=== PATIENT | female | born 1945 | race Two or more races ===

== ENCOUNTER 2017-08-21 18:13 | Emergency (ER) | payer OTHER ==
[~2017-08-21] VITALS: Ht 165.1 cm; Wt 84.4 kg
[~2017-08-21 18:13] MED LIST: ASA81 MG; CEPHULAC10 G/15 ML PO; FLEXERIL10 MG PO; HYDROCHLOROTH12.5 M1; LISINOPRIL2.5 MG; METOPROLOL SUCC25 MG; MOTRIN800 MG PO; NORVASC2.5 MG; ORPH100T PO; PRAVACHOL10 MG; ZANTAC150 MG PO
[2017-08-21] MEDS ORDERED: PEPCID AC20 MG (18:38)
[2017-08-21] MEDS ORDERED: LIPITOR40 MG (18:38)
[2017-08-21] MEDS ORDERED: TOPROL XL50 M1 (18:39)
[2017-08-21] MEDS ORDERED: PLAVIX75 MG (18:39)
[2017-08-21] MEDS ORDERED: ASPIR-LOW81 MG (18:40)
[2017-08-21] MEDS ORDERED: NIFE60TA3 (18:40)
[2017-08-22] MEDS ORDERED: ZANTAC300 MG PO (02:52)
== END 2017-08-22 03:47 | disposition home or self-care (01) ==
LOC: ER 18:13
DX: R07.89 Other chest pain (principal); K21.9 Gastro-esophageal reflux disease without esophagitis; I10 Essential (primary) hypertension

== ENCOUNTER 2017-08-25 09:58 | Emergency (ER) | payer OTHER ==
[~2017-08-25] VITALS: Ht 165.1 cm; Wt 83.5 kg
[~2017-08-25 09:58] MED LIST changes: +ASPIR-LOW81 MG; +LIPITOR40 MG; +NIFE60TA3; +PEPCID AC20 MG; +PLAVIX75 MG; +TOPROL XL50 M1; +ZANTAC300 MG PO
== END 2017-08-25 13:23 | disposition home or self-care (01) ==
LOC: ER 09:58
DX: K29.60 Other gastritis without bleeding (principal)

== ENCOUNTER 2017-09-09 07:33 | Outpatient (CLI) | payer OTHER | END 2017-09-09 07:36 | disposition home or self-care (01) | LOC: NUCLEAR 07:33 | DX: R07.89 Other chest pain (principal); I10 Essential (primary) hypertension; R94.31 Abnormal electrocardiogram [ECG] [EKG] | CPT/HCPCS: 78452; 93017; A9500; J0153 ==

== ENCOUNTER 2017-10-13 10:09 | Emergency (ER) | payer OTHER ==
[~2017-10-13] VITALS: Ht 162.6 cm; Wt 82.1 kg
== END 2017-10-13 12:03 | disposition home or self-care (01) ==
LOC: ER 10:09
DX: H61.23 Impacted cerumen, bilateral (principal)

== ENCOUNTER 2018-08-03 11:28 | Outpatient (CLI) | payer OTHER | END 2018-08-03 11:39 | disposition home or self-care (01) | LOC: MAMO-SONO 11:28 | DX: Z12.31 Encounter for screening mammogram for malignant neoplasm of breast (principal); Z87.898 Personal history of other specified conditions; N60.11 Diffuse cystic mastopathy of right breast; N60.12 Diffuse cystic mastopathy of left breast; N63.10 Unspecified lump in the right breast, unspecified quadrant ==

== ENCOUNTER 2019-07-24 13:32 | Emergency (ER) | payer OTHER ==
[~2019-07-24] VITALS: Ht 165.1 cm; Wt 87.1 kg
== END 2019-07-24 14:08 | disposition home or self-care (01) ==
LOC: ER 13:32
DX: J03.90 Acute tonsillitis, unspecified (principal)

== ENCOUNTER 2019-10-01 07:32 | Outpatient (CLI) | payer OTHER | END 2019-10-01 07:40 | disposition home or self-care (01) | LOC: SONOGRAMA 07:32 | PROVIDERS: ATTEND Internal Medicine Gastroenterology | DX: R10.84 Generalized abdominal pain (principal) ==

== ENCOUNTER → 2019-10-25 | Outpatient (CLI) | payer OTHER | END | disposition home or self-care (01) | LOC: OFIC 805 09:03 | PROVIDERS: ATTEND Otolaryngology | DX: R07.0 Pain in throat (principal); R09.89 Other specified symptoms and signs involving the circulatory and respiratory systems; H61.23 Impacted cerumen, bilateral; K21.9 Gastro-esophageal reflux disease without esophagitis ==

== ENCOUNTER 2019-12-20 08:49 | Outpatient (CLI) | payer OTHER | END 2019-12-20 15:55 | disposition home or self-care (01) | LOC: OFIC 805 08:49 | PROVIDERS: ATTEND Otolaryngology | DX: F45.8 Other somatoform disorders (principal); R07.0 Pain in throat; K21.9 Gastro-esophageal reflux disease without esophagitis ==

== ENCOUNTER 2020-05-29 17:53 | Emergency (ER) | payer OTHER ==
[~2020-05-29] VITALS: Ht 162.6 cm; Wt 82.1 kg
== END 2020-05-29 22:08 | disposition home or self-care (01) ==
LOC: ER 17:53
DX: G43.809 Other migraine, not intractable, without status migrainosus (principal); R20.2 Paresthesia of skin; Z03.818 Encounter for observation for suspected exposure to other biological agents ruled out

== ENCOUNTER 2020-06-06 10:31 | Outpatient (CLI) | payer OTHER | END 2020-06-06 10:32 | disposition home or self-care (01) | LOC: NUCLEAR 10:31 | PROVIDERS: ATTEND Internal Medicine Cardiovascular Disease | DX: I73.9 Peripheral vascular disease, unspecified (principal) ==

== ENCOUNTER 2020-07-08 07:37 | Outpatient (CLI) | payer OTHER | END 2020-07-08 07:38 | disposition home or self-care (01) | LOC: NUCLEAR 07:37 | PROVIDERS: ATTEND Internal Medicine Cardiovascular Disease | DX: I10 Essential (primary) hypertension (principal); R07.89 Other chest pain | CPT/HCPCS: 78452; 93017; A9500; J0153 ==

== ENCOUNTER 2020-07-29 13:37 | Emergency (ER) | payer OTHER ==
[~2020-07-29] VITALS: Ht 165.1 cm; Wt 80.7 kg
== END 2020-07-29 18:59 | disposition home or self-care (01) ==
LOC: ER 13:37
DX: K80.80 Other cholelithiasis without obstruction (principal); R10.11 Right upper quadrant pain

== ENCOUNTER 2020-11-05 14:13 | Outpatient (CLI) | payer OTHER | END 2020-11-05 14:20 | disposition home or self-care (01) | LOC: RAD 14:13 | DX: I10 Essential (primary) hypertension (principal); Z01.818 Encounter for other preprocedural examination ==

== ENCOUNTER 2021-05-15 12:31 | Outpatient (CLI) | payer OTHER | END 2021-05-15 12:33 | disposition home or self-care (01) | LOC: RAD 12:31 | PROVIDERS: ATTEND Specialist | DX: N20.0 Calculus of kidney (principal); J45.998 Other asthma ==

== ENCOUNTER 2021-06-09 08:00 | Outpatient (CLI) | payer OTHER | END 2021-06-09 08:30 | disposition home or self-care (01) | LOC: PPH VACUNA 08:00 | PROVIDERS: ATTEND Emergency Medicine Pediatric Emergency Medicine | DX: Z23 Encounter for immunization (principal) ==

== ENCOUNTER 2021-10-13 10:48 | Outpatient (CLI) | payer OTHER | END 2021-10-13 11:03 | disposition home or self-care (01) | LOC: MAMO-SONO 10:48 | PROVIDERS: ATTEND Obstetrics & Gynecology | DX: N63.10 Unspecified lump in the right breast, unspecified quadrant (principal); N63.20 Unspecified lump in the left breast, unspecified quadrant ==

== ENCOUNTER 2022-07-15 13:07 | Outpatient (CLI) | payer OTHER | END 2022-07-15 13:12 | disposition home or self-care (01) | LOC: RAD 13:07 | PROVIDERS: ATTEND Specialist | DX: G54.2 Cervical root disorders, not elsewhere classified (principal) ==

== ENCOUNTER 2022-09-22 11:29 | Emergency (ER) | payer OTHER ==
[~2022-09-22] VITALS: Ht 160 cm; Wt 81.6 kg
[2022-09-22] MEDS ORDERED: PROTONIX20 MG PO (12:39)
== END 2022-09-22 14:15 | disposition home or self-care (01) ==
LOC: ER 11:29
DX: M62.838 Other muscle spasm (principal)

== ENCOUNTER → 2022-10-28 | Outpatient (CLI) | payer OTHER ==
[~2022-10-28] MED LIST changes: +PROTONIX20 MG PO
== END | disposition home or self-care (01) ==
LOC: RAD 12:14
PROVIDERS: ATTEND Specialist
DX: I70.0 Atherosclerosis of aorta (principal)

== ENCOUNTER 2022-12-14 10:05 | Outpatient (CLI) | payer OTHER | END 2022-12-14 10:12 | disposition home or self-care (01) | LOC: SONOGRAMA 10:05 | PROVIDERS: ATTEND Internal Medicine Gastroenterology | DX: R10.9 Unspecified abdominal pain (principal); K80.20 Calculus of gallbladder without cholecystitis without obstruction; R93.2 Abnormal findings on diagnostic imaging of liver and biliary tract ==

== ENCOUNTER 2022-12-24 13:35 | Emergency (ER) | payer OTHER ==
[~2022-12-24] VITALS: Ht 167.6 cm; Wt 68.0 kg
[2022-12-24 14:49] LABS: HEMATOCRIT 39.5 % (36.0-45.00); HEMOGLOBIN 13.6 g/dL (12.0-15.00); MEAN CELL VOLUME 92.1 fL (80.00-100.00); MEAN CORPUSCULAR HEMOGLOBIN 31.7 pg (27.00-32.0); MEAN CORPUSCULAR HGB CONC 34.5 g/dl (32.0-36.0); PLATELET COUNT 212 K/uL (150-450); RED BLOOD COUNT 4.29 M/uL (4.00-6.00); RED CELL DISTRIBUTION WIDTH 13.8 % (11.5-14.5)
[2022-12-24 15:12] LABS: CALCIUM 9.1 mg/dL (8.5-10.1); CREATININE SERUM 0.84 mg/dL (0.55-1.02); GFR 65.74; POTASSIUM 4.4 mEq/L (3.5-5.1)
== END 2022-12-24 17:53 | disposition home or self-care (01) ==
LOC: ER 13:35
PROVIDERS: General Practice
DX: R51.9 Headache, unspecified (principal); I10 Essential (primary) hypertension; Z86.73 Personal history of transient ischemic attack (TIA), and cerebral infarction without residual deficits

== ENCOUNTER 2023-05-06 10:20 | Emergency (ER) | payer OTHER ==
[~2023-05-06] VITALS: Ht 165.1 cm; Wt 83.0 kg
[2023-05-06] MEDS ORDERED: AVAPRO300 MG PO (11:08)
[2023-05-06] MEDS ORDERED: NORVASC5 MG PO (11:09)
[2023-05-06] MEDS ORDERED: LIPITOR40 M1 PO (11:09)
== END 2023-05-06 16:08 | disposition home or self-care (01) ==
LOC: ER 10:22
DX: R10.9 Unspecified abdominal pain (principal); K21.9 Gastro-esophageal reflux disease without esophagitis; I10 Essential (primary) hypertension; E78.00 Pure hypercholesterolemia, unspecified; I20.89 Other forms of angina pectoris; K59.00 Constipation, unspecified
CPT/HCPCS: 74240; 96365; 99283; J3490

== ENCOUNTER 2023-06-08 11:59 | Outpatient (CLI) | payer OTHER ==
[~2023-06-08 11:59] MED LIST changes: +AVAPRO300 MG PO; +LIPITOR40 M1 PO; +NORVASC5 MG PO
== END 2023-06-08 12:03 | disposition home or self-care (01) ==
LOC: RAD 11:59
PROVIDERS: ATTEND Specialist
DX: J45.991 Cough variant asthma (principal)

== ENCOUNTER 2024-03-30 13:46 | Emergency (ER) | payer OTHER ==
[~2024-03-30] VITALS: Ht 165.1 cm; Wt 77.1 kg
[2024-03-30] MEDS ORDERED: 0.9 % SODIUM CHLORIDE 500 ML IV ONE (16:15)
[2024-03-30 17:23] LABS: HEMATOCRIT 41.3 % (36.0-45.00); HEMOGLOBIN 13.9 g/dL (12.0-15.00); MEAN CELL VOLUME 93.2 fL (80.00-100.00); MEAN CORPUSCULAR HEMOGLOBIN 31.3 pg (27.00-32.0); MEAN CORPUSCULAR HGB CONC 33.6 g/dl (32.0-36.0); PLATELET COUNT 156 K/uL (150-450); RED BLOOD COUNT 4.43 M/uL (4.00-6.00); RED CELL DISTRIBUTION WIDTH 13.1 % (11.5-14.5)
[2024-03-30 17:47] LABS: ALBUMIN 3.9 gm/dL (3.4-5.0); BILIRUBIN TOTAL 0.68 mg/dL (0.3-1.2); CALCIUM 9.4 mg/dL (8.5-10.1); CREATININE SERUM 0.86 mg/dL (0.55-1.02); GFR 63.82; GLOBULINA 3.2 G/DL (2.4-3.5); POTASSIUM 4.22 mEq/L (3.5-5.1); TOTAL PROTEIN 7.1 gm/dL (6.4-8.2)
[2024-03-30 17:55] LABS: URINE APPEARANCE Clear; URINE BILIRRUBIN Negative (NEGATIVE); URINE BLOOD Negative; URINE COLOR Yellow; URINE GLUCOSE Negative (NEGATIVE); URINE KETONE Negative (NEGATIVE); URINE LEUKOCYTE Trace; URINE NITRATE Negative; URINE PROTEIN Negative (NEGATIVE); URINE UROBILINOGEN 0.2 E.U./dl
[2024-03-30 17:59] LABS: URINE BACTERIA 4.8 uL (0.0-1933); URINE EPITHELIAL CELLS 3.1 uL (0.0-38.8); URINE RBC 2.3 uL (0.0-20.8); URINE WBC 5.1 uL (0.0-23.2)
== END 2024-03-30 21:56 | disposition home or self-care (01) ==
LOC: ER 13:48
PROVIDERS: General Practice
DX: R51.9 Headache, unspecified (principal); R20.0 Anesthesia of skin; E78.00 Pure hypercholesterolemia, unspecified; I10 Essential (primary) hypertension; K29.70 Gastritis, unspecified, without bleeding; H40.89 Other specified glaucoma; I73.89 Other specified peripheral vascular diseases; Z86.73 Personal history of transient ischemic attack (TIA), and cerebral infarction without residual deficits
CPT/HCPCS: 36415; 70450; 96365; 96366; 99284; J7042

== ENCOUNTER 2024-07-31 09:32 | Outpatient (CLI) | payer OTHER | END 2024-07-31 09:39 | disposition home or self-care (01) | LOC: TOM 09:32 | PROVIDERS: ATTEND Internal Medicine Gastroenterology | DX: R10.84 Generalized abdominal pain (principal); K59.00 Constipation, unspecified; K80.20 Calculus of gallbladder without cholecystitis without obstruction; R93.2 Abnormal findings on diagnostic imaging of liver and biliary tract ==

== ENCOUNTER 2024-10-31 13:45 | Outpatient (CLI) | payer OTHER | END 2024-10-31 13:49 | disposition home or self-care (01) | LOC: RAD 13:45 | PROVIDERS: ATTEND Specialist | DX: J45.998 Other asthma (principal) ==